=== PATIENT | female | born 1955 | race Caucasian/White ===

== ENCOUNTER → 2018-08-21 11:21 | Outpatient (REF) | payer OTHER, SELFPAY | LOC: LAB 11:21 | PROVIDERS: Visit Provider Nurse Practitioner Family | DX: R16.0 Hepatomegaly, not elsewhere classified (principal) | CPT/HCPCS: 82140 ==

== ENCOUNTER → 2018-08-21 11:24 | Outpatient (CLI) | payer OTHER, SELFPAY ==
--- NOTE | 2018-08-21 | DI.US.S_ITS ---
PROCEDURE: US ABDOMEN COMPLETE INDICATIONS: RIGHT UPPER QUADRANT PAIN ASCITES TECHNIQUE: Real-time scanning was performed of the abdominal and retroperitoneal organs, with image documentation. COMPARISON: None. FINDINGS: Liver: Liver is diffusely increased in echogenicity. No focal hepatic abnormalities identified. Normal hepatic size. Gallbladder: Tumefactive sludge ball involving the gallbladder and gallbladder wall is thickened measuring 5 mm. Small amount pericholecystic fluid. Negative sonographic Robert sign. Biliary ducts: Intrahepatic bile ducts are non-dilated. Extrahepatic bile duct caliber measures 5.0 mm. Normal is 6-7 mm or less in diameter, or 10 mm or less post-cholecystectomy. Pancreas: Visualized portions of the pancreas are sonographically normal. Spleen: Spleen is normal in size and homogeneous in echotexture. Kidneys: Kidneys are normal in size and echotexture. Right kidney measures 11.3 cm long; left kidney measures 10.7 cm long. No hydronephrosis or nephrolithiasis. No solid masses. Aorta: Visualized aorta is normal in caliber at less than 3 cm. Iliacs: Proximal common iliac arteries are normal in caliber at less than 2.5 cm. IVC: Intrahepatic inferior vena cava is patent. Miscellaneous: No free abdominal fluid. IMPRESSION: 14 mm tumefactive sludge ball, gallbladder wall thickening and trace pericholecystic fluid. Recommend clinical correlation to exclude developing cholecystitis. Increased hepatic echogenicity noted possibly related to hepatic steatosis but other sources of hepatocellular disease cannot be excluded. Recommend clinical correlation. Dictated by: Carson VALDIVIA Interpreted: Dania Vargas MD on 08/21/2018 at 15:00 Approved by: Dania Vargas M.D. on 08/21/2018 at 16:41
== END ==
PROVIDERS: PCP Nurse Practitioner Family; Visit Provider Nurse Practitioner Family
DX: R10.11 Right upper quadrant pain (principal); R18.8 Other ascites; R17 Unspecified jaundice; R16.0 Hepatomegaly, not elsewhere classified; K82.9 Disease of gallbladder, unspecified
CPT/HCPCS: 76700

== ENCOUNTER 2018-08-22 11:51 | Emergency (ER) | payer OTHER, SELFPAY ==
[2018-08-22 12:03] VITALS: BP 138/63; PULSE 104; RESP 20; TEMP 37; O2SAT 98; BMI 27.2
--- NOTE | 2018-08-22 12:03 | ED.ABDPAIN ---
HPI - Abdominal Pain General Chief Complaint: Abdominal Pain Stated Complaint: patient sent by Dr. Day Time Seen by Provider: 08/22/18 11:58 Source: patient Mode of arrival: ambulatory Limitations: no limitations History of Present Illness HPI narrative: Patient is a 62-year-old female sent in by her PCP concern for cholecystitis. She has had ongoing issues for last 1 month. She initially had some nausea vomiting diarrhea which has since resolved. She then had some right upper quadrant pain yesterday blood work was drawn showed elevated bilirubin of 7.0 and some sludge in the gallbladder. Results were called to her today she was sent to the ED for further evaluation. She no longer has nausea vomiting diarrhea. He has not had any recent traveling. She has minimal right upper quadrant pain no fever. He does have a history of breast cancer she was previously on medication which she stopped taking 1 month ago because the side effects to the liver. MD complaint: abdominal pain Related Data Home Medications Medication Instructions Recorded Confirmed multivitamin [Multiple Vitamins] 1 tab PO DAILY 08/22/18 08/22/18 Allergies Allergy/AdvReac Type Severity Reaction Status Date / Time No Known Drug Allergies Allergy Verified 08/22/18 14:15 Review of Systems Review of Systems All systems reviewed & are unremarkable except as noted in HPI and below Constitutional Denies chills, Denies fever(s), Denies lethargy and Denies weakness ENT Ears, Nose, Mouth, and Throat: Denies change in voice, Denies neck pain and Denies sore throat Cardiovascular Denies chest pain, Denies irregular heart rhythm, Denies lightheadedness, Denies palpitations, Denies dyspnea, Denies dyspnea on exertion and Denies orthopnea Respiratory Denies cough, Denies dyspnea, Denies dyspnea on exertion and Denies wheezing Gastrointestinal Gastrointestinal: Reports as per HPI Genitourinary Denies hematuria, Denies flank pain, Denies urinary incontinence and Denies urinary urgency Musculoskeletal Denies neck pain Integumentary/Breasts Denies pruritus, Denies erythema, Denies rash and Denies wounds Neurologic Denies weakness Endocrine Denies palpitations Allergic/Immunologic Denies wheezing PFSH Medical History Breast cancer (Acute) Melanoma (Acute) Social History Smoking Status: Never smoker alcohol intake: former Comment: 1-2 glasses of wine nightly but not for a few weeks Exam Initial Vital Signs Initial Vital Signs: Vital Signs Temperature 98.6 F 08/22/18 12:03 Pulse Rate 104 H 08/22/18 12:03 Respiratory Rate 20 08/22/18 12:03 Blood Pressure 138/63 08/22/18 12:03 Pulse Oximetry 98 08/22/18 12:03 Const General: cooperative and comfortable Orientation: alert, awake and oriented x3 HENMT Head: normal to inspection and normocephalic Eyes Conjunctivae: conjunctival abnormality bilaterally conjunctival icterus Pupils: PERRL EOM: EOM intact bilaterally Neck Neck: normal visual inspection and full ROM Chest Chest: normal inspection of the chest Resp Effort & Inspection: normal respiratory effort Auscultation: clear to auscultation bilaterally, no rales, no rhonchi and no wheezes Cardio Rate: regular rate Rhythm: regular rhythm Heart Sounds: S1 normal and S2 normal GI Inspection: normal to inspection Palpation: soft, No firm, No rigid, No tender (Negative Robert sign) and No ascites General: No CVA tenderness Skin General: No induration, jaundice and No petechiae Neuro General: alert, awake and oriented x3 Cranial Nerves: CN's II-XI intact bilaterally Course Orders Ordered: ED Orders 08/22/18 12:08 Complete Blood Count AUTO DIFF Stat 08/22/18 12:20 CT abdomen pelvis w con Stat 08/22/18 12:53 Comprehensive Metabolic Panel Stat Lipase Stat 08/22/18 14:05 MR abdomen wo con Stat Vital Signs - 8 hr 08/22/18 12:03 08/22/18 13:15 08/22/18 14:11 Temperature 98.6 F Pulse Rate 104 H 97 H 101 H Respiratory Rate 20 17 21 Blood Pressure 138/63 Blood Pressure [Left Arm] 120/61 116/59 L Pulse Oximetry 98 96 96 08/22/18 14:41 08/22/18 16:05 08/22/18 17:06 Temperature 98.4 F Pulse Rate 102 H 101 H 99 H Respiratory Rate 20 21 18 Blood Pressure 112/60 Blood Pressure [Left Arm] 122/46 L 122/46 L Pulse Oximetry 97 97 94 MDM - Abdominal Pain Medical Records Attestation: I reviewed the patient's medical records. Lab Data Attestation: I reviewed the patient's lab results. Result diagrams: 08/22/18 12:08 08/22/18 12:53 Lab Results 08/22/18 08/22/18 Range/Units 12:08 12:53 WBC 15.2 H (4.5-11.0) X10^3/uL RBC 3.18 L (4.0-5.2) X10^6/uL Hgb 11.6 L (12.0-16.0) g/dL Hct 34.1 L (36-46) % MCV 106.9 H (80-100) fL MCH 36.4 H (26-34) PG MCHC 34.0 (30-36) % RDW 14.6 (11.6-14.8) % Plt Count 399 (150-400) X10^3/uL Neut % (Auto) 78.5 H (50-75) % Lymph % (Auto) 12.3 L (25-40) % [place] % (Auto) 8.2 (3-14) % Eos % (Auto) 0.4 L (2-4) % Baso % (Auto) 0.6 (0-2) % Neut # (Auto) 39953 H (1070-9250) /uL Sodium 138 (137-145) mmol/L Potassium 3.6 (3.4-5.1) mmol/L Chloride 98 (98-107) mmol/L Carbon Dioxide 26 (22-32) mmol/L BUN 4 L (7-17) mg/dL Creatinine 0.40 L (0.52-1.04) mg/dL Estimated GFR > 60.0 (>60) mL/min BUN/Creatinine Ratio 10.0 (6-22) Glucose 94 (80-110) mg/dL Calcium 8.3 L (8.4-10.2) mg/dL Total Bilirubin 7.0 H (0.2-1.3) mg/dL AST 281 H (14-36) IU/L ALT 71 H (9-52) IU/L Alkaline Phosphatase 214 H (38-126) U/L Total Protein 6.8 (6.3-8.2) g/dL Albumin 3.3 L (3.5-5.0) g/dL Globulin 3.5 (1.7-4.1) g/dL Albumin/Globulin Ratio 0.9 L (1.0-2.8) Lipase 320 H (23-300) U/L Point of care testing: Urine Dip Bedside Urine Glucose Negative Bedside Urine Bilirubin - Negative Bedside Urine Ketone - Negative Bedside Urine Occult Blood - Negative Bedside Urine Protein - Negative Bedside Urine Urobilinogen - Negative Bedside Urine Nitrite - Negative Bedside Urine Leukocytes - Negative Esterase Imaging Data CT scan - abdomen: Radiologist's impression: PROCEDURE: CT ABDOMEN PELVIS W CON INDICATIONS: gallbaldder sludge on US hx melanoma and breast CA TECHNIQUE: After the administration of intravenous contrast, 5 mm thick sections acquired from the diaphragm to the symphysis. 5 mm coronal and sagittal reformats were acquired. For radiation dose reduction, the following was used: automated exposure control, adjustment of mA and/or kV according to patient size. COMPARISON: None. FINDINGS: Image quality: Excellent. ABDOMEN: Lung bases: Platelike atelectasis at bilateral lung bases are seen. No pleural effusion or pneumothorax. Heart size is mildly enlarged, no pericardial effusion. Solid organs: Liver is normal in size. Slightly lobulated liver contour and diffusely decreased liver parenchymal density is seen, which may represent hepatic steatosis. Early cirrhosis cannot be excluded. Small amount of ascites fluid is seen adjacent to right lobe of liver. No definite discrete hepatic lesion is seen. Gallbladder is partially distended and shows no calcified gallstone. Questionable gallbladder wall thickening is seen. A small amount of pericholecystic fluid is also noted. Biliary system is non dilated. Pancreas enhances normally. Spleen is normal in size and enhancement. No adrenal nodules. Kidneys demonstrate normal size and enhancement, without hydronephrosis. Peritoneum and bowel: There is a small hiatal hernia. Questionable gastric wall and duodenal wall thickening is seen. No other significant small bowel wall thickening. No gross colonic wall thickening. Extensive descending colon and sigmoid colon diverticulosis is seen, no significant evidence of acute diverticulitis. There is no peritoneal free air. Small to moderate amount of free fluid in the lower abdomen and pelvis is seen. Nodes and vessels: No retroperitoneal or mesenteric adenopathy by size criteria. Aorta and inferior vena cava are normal in size. Miscellaneous: No ventral hernias. PELVIS: Genitourinary: Bladder wall thickness is normal. Miscellaneous: No inguinal hernias or adenopathy. Bones: No suspicious bony lesions. No vertebral body compression fractures. IMPRESSION: 1. Mildly thickened gallbladder wall with pericholecystic fluid, no gross calcified gallstone is seen. Developing cholecystitis cannot be excluded. 2. Hepatic steatosis. Questionable lobulated liver contour, early cirrhosis cannot be excluded. No definite discrete hepatic lesion. No gross intrahepatic or ductal dilatation. 3. Small amount of ascites fluid adjacent to right lobe of liver. Small to moderate amount of fluid in lower abdomen and pelvis. No gross free air. 4. Questionable mild diffuse gastric wall thickening and duodenal wall thickening, which may represent gastroenteritis versus reactive inflammatory changes from adjacent inflammation in gallbladder fossa. No bowel obstruction. Sigmoid diverticulosis with no evidence of acute diverticulitis. Dictated by: Noah Fernández M.D. on 08/22/2018 at 12:50 MRCP: Radiologist's impression: PROCEDURE: MR ABDOMEN WO CON INDICATIONS: elevated bilirubin (dr. day request). ABDOMINAL PAIN TECHNIQUE: Coronal HASTE through the abdomen, axial 2-D FLASH in- and [id number], and breath-hold T2 FSE with fat saturation through the biliary system and pancreas. Oblique coronal and axial thin-slice HASTE, radial thick-slab HASTE centered on the extrahepatic bile ducts. Intravenous secretin: Not requested. COMPARISON: [facility], US, US ABDOMEN COMPLETE, 08/21/2018, 13:18. [facility], CT, CT ABDOMEN PELVIS W CON, 08/22/2018, 12:17. FINDINGS: Image quality: Excellent. Pancreas and biliary system: Intra- and extra-hepatic biliary ducts are non dilated. Pancreas is normal in morphology, without adjacent soft tissue edema. Pancreatic duct is normal in caliber, without developmental anomalies. Gallbladder contains no gallstones. There is mild gallbladder wall thickening and a small amount of pericholecystic fluid. Other solid organs: Liver is enlarged. Diffuse hepatic fatty infiltration. No focal hepatic mass. Spleen is normal in size. No adrenal nodules. Both kidneys are normal in size, without hydronephrosis. Nodes and vessels: A 1.3 cm periportal lymph node is noted. Aorta and inferior vena cava are normal in size. Bowel and peritoneum: Mild thickening of duodenum is noted. There is a small amount of free fluid around liver, spleen, and the lesser sac and paracolic cutters. Lung bases: No basal pleural effusions. Heart size is normal. Bones and soft tissues: No ventral hernias. Bone marrow is of normal overall signal. IMPRESSION: 1. There is mild gallbladder wall thickening and a small amount of pericholecystic fluid. No gallstones. This findings may be secondary to acalculus cholecystitis or related to liver disease such as hepatitis. 2. No evidence for biliary obstruction. 3. Hepatomegaly. 4. Mildly enlarged periportal lymph nodes, which is nonspecific and may be seen in hepatitis. 5. Mild thickening of duodenum is present. Differential diagnosis includes duodenitis, peptic ulcer disease or direct spread of inflammation/infection from liver or gallbladder disease. 6. A small amount of ascites. Dictated by: Elmer Gracia M.D. on 08/22/2018 at 15:36 Approved by: Elmer Gracia M.D. on 08/22/2018 at 15:51 [facility] Narrative Medical decision making narrative: Dr. Day has been updated patient's symptoms test results and CT. He has been down to the ER to evaluate and look at the CT himself. Recommend MRCP. MRCP does not show common bile duct blockage. Dr. Day has reviewed the MRCP results as well. At this time unlikely to be cholecystitis no need for surgery at this time. Possible hepatitis although I have spoken with Rosalinda Oakley who states that he hepatitis panel from yesterday has returned back and is normal. Patient does have slightly elevated GGTP, and 2-1 ratio of ALT to AST not like alcoholic hepatitis. At this time outpatient follow-up and further workup. I discussed all findings with the patient, Education has been performed regarding treatment plan, diagnosis, warning signs and symptoms and all concerns have been addressed. Verbally agree with and understood all of the above. Discharge Plan Departure Patient Disposition: Home Clinical Impression: Jaundice Discharge Date/Time: 08/22/18 17:06 Interventions: ED Discharge Assessment Last Done: 08/22/18 17:06 Instructions: Jaundice Activity Restrictions/Additional Instructions: *You have been diagnosed with jaundice *What to do: Jaundice is likely caused from and abnormal liver problem. At this time it is not clear what is causing all you're abnormal lab functions. I have spoken with Ashleigh Tellez who will get you a consultation and referral with a spot welder. At this time no indication for emergent or immediate surgery gallbladder is unlikely the problem *Continue to take medications as directed -avoid alcohol -do not take Tylenol *Follow up with your primary care provider in 2-3 days *Return to ER if you should have fever, increased abdominal swelling, increasing pain, worsening yellow color or any new, worsening or concerning symptoms Prescriptions: No Action multivitamin [Multiple Vitamins] Tablet 1 tab PO DAILY RF: 0 Referrals: Rosalinda Jackson ARNP [Primary Care Provider] -
--- NOTE | 2018-08-22 12:20 | DI.CT.S_ITS ---
PROCEDURE: CT ABDOMEN PELVIS W CON INDICATIONS: gallbaldder sludge on US hx melanoma and breast CA TECHNIQUE: After the administration of intravenous contrast, 5 mm thick sections acquired from the diaphragm to the symphysis. 5 mm coronal and sagittal reformats were acquired. For radiation dose reduction, the following was used: automated exposure control, adjustment of mA and/or kV according to patient size. COMPARISON: None. FINDINGS: Image quality: Excellent. ABDOMEN: Lung bases: Platelike atelectasis at bilateral lung bases are seen. No pleural effusion or pneumothorax. Heart size is mildly enlarged, no pericardial effusion. Solid organs: Liver is normal in size. Slightly lobulated liver contour and diffusely decreased liver parenchymal density is seen, which may represent hepatic steatosis. Early cirrhosis cannot be excluded. Small amount of ascites fluid is seen adjacent to right lobe of liver. No definite discrete hepatic lesion is seen. Gallbladder is partially distended and shows no calcified gallstone. Questionable gallbladder wall thickening is seen. A small amount of pericholecystic fluid is also noted. Biliary system is non dilated. Pancreas enhances normally. Spleen is normal in size and enhancement. No adrenal nodules. Kidneys demonstrate normal size and enhancement, without hydronephrosis. Peritoneum and bowel: There is a small hiatal hernia. Questionable gastric wall and duodenal wall thickening is seen. No other significant small bowel wall thickening. No gross colonic wall thickening. Extensive descending colon and sigmoid colon diverticulosis is seen, no significant evidence of acute diverticulitis. There is no peritoneal free air. Small to moderate amount of free fluid in the lower abdomen and pelvis is seen. Nodes and vessels: No retroperitoneal or mesenteric adenopathy by size criteria. Aorta and inferior vena cava are normal in size. Miscellaneous: No ventral hernias. PELVIS: Genitourinary: Bladder wall thickness is normal. Miscellaneous: No inguinal hernias or adenopathy. Bones: No suspicious bony lesions. No vertebral body compression fractures. IMPRESSION: 1. Mildly thickened gallbladder wall with pericholecystic fluid, no gross calcified gallstone is seen. Developing cholecystitis cannot be excluded. 2. Hepatic steatosis. Questionable lobulated liver contour, early cirrhosis cannot be excluded. No definite discrete hepatic lesion. No gross intrahepatic or ductal dilatation. 3. Small amount of ascites fluid adjacent to right lobe of liver. Small to moderate amount of fluid in lower abdomen and pelvis. No gross free air. 4. Questionable mild diffuse gastric wall thickening and duodenal wall thickening, which may represent gastroenteritis versus reactive inflammatory changes from adjacent inflammation in gallbladder fossa. No bowel obstruction. Sigmoid diverticulosis with no evidence of acute diverticulitis. Dictated by: Noah Fernández M.D. on 08/22/2018 at 12:50 Approved by: Noah Fernández M.D. on 08/22/2018 at 13:06
[2018-08-22 12:21] LABS: Add Manual Diff / Slide Review NO; Basophils Percent Auto 0.6 % (0-2); Eosinophils Percent Auto 0.4 % (2-4); Hematocrit 34.1 % (36-46); Hemoglobin 11.6 g/dL (12.0-16.0); Lymphocytes Percent Auto 12.3 % (25-40); Mean Corpuscular Hemoglobin 36.4 PG (26-34); Mean Corpuscular Volume 106.9 fL (80-100); Monocytes Percent Auto 8.2 % (3-14); Neutrophils Absolute Auto 12000 /uL (3000-5900); Neutrophils Percent Auto 78.5 % (50-75); Platelet Count 399 X10^3/uL (150-400); Red Blood Cell Count 3.18 X10^6/uL (4.0-5.2); Red Cell Distribution Width 14.6 % (11.6-14.8); White Blood Cell Count 15.2 X10^3/uL (4.5-11.0)
[2018-08-22 13:15] VITALS: BP 120/61; PULSE 97; RESP 17; O2SAT 96
[2018-08-22 13:21] LABS: Alanine Aminotransferase 71 IU/L (9-52); Albumin 3.3 g/dL (3.5-5.0); Albumin Globulin Ratio 0.9 (1.0-2.8); Alkaline Phosphatase 214 U/L (38-126); Aspartate Aminotransferase 281 IU/L (14-36); Blood Urea Nitrogen 4 mg/dL (7-17); Calcium 8.3 mg/dL (8.4-10.2); Carbon Dioxide 26 mmol/L (22-32); Chloride 98 mmol/L (98-107); Estimated Glomerular Filt Rate > 60.0 mL/min (>60); Globulin 3.5 g/dL (1.7-4.1); Glucose 94 mg/dL (80-110); HEMOLYSIS < 15 (0-50); Lipase 320 U/L (23-300); Potassium 3.6 mmol/L (3.4-5.1); Sodium 138 mmol/L (137-145); Total Protein 6.8 g/dL (6.3-8.2)
--- NOTE | 2018-08-22 14:05 | DI.MRI.S_ITS ---
PROCEDURE: MR ABDOMEN WO CON INDICATIONS: elevated bilirubin (dr. bella request). ABDOMINAL PAIN TECHNIQUE: Coronal HASTE through the abdomen, axial 2-D FLASH in- and [id number], and breath-hold T2 FSE with fat saturation through the biliary system and pancreas. Oblique coronal and axial thin-slice HASTE, radial thick-slab HASTE centered on the extrahepatic bile ducts. Intravenous secretin: Not requested. COMPARISON: [facility], US, US ABDOMEN COMPLETE, 08/21/2018, 13:18. [facility], CT, CT ABDOMEN PELVIS W CON, 08/22/2018, 12:17. FINDINGS: Image quality: Excellent. Pancreas and biliary system: Intra- and extra-hepatic biliary ducts are non dilated. Pancreas is normal in morphology, without adjacent soft tissue edema. Pancreatic duct is normal in caliber, without developmental anomalies. Gallbladder contains no gallstones. There is mild gallbladder wall thickening and a small amount of pericholecystic fluid. Other solid organs: Liver is enlarged. Diffuse hepatic fatty infiltration. No focal hepatic mass. Spleen is normal in size. No adrenal nodules. Both kidneys are normal in size, without hydronephrosis. Nodes and vessels: A 1.3 cm periportal lymph node is noted. Aorta and inferior vena cava are normal in size. Bowel and peritoneum: Mild thickening of duodenum is noted. There is a small amount of free fluid around liver, spleen, and the lesser sac and paracolic cutters. Lung bases: No basal pleural effusions. Heart size is normal. Bones and soft tissues: No ventral hernias. Bone marrow is of normal overall signal. IMPRESSION: 1. There is mild gallbladder wall thickening and a small amount of pericholecystic fluid. No gallstones. This findings may be secondary to acalculus cholecystitis or related to liver disease such as hepatitis. 2. No evidence for biliary obstruction. 3. Hepatomegaly. 4. Mildly enlarged periportal lymph nodes, which is nonspecific and may be seen in hepatitis. 5. Mild thickening of duodenum is present. Differential diagnosis includes duodenitis, peptic ulcer disease or direct spread of inflammation/infection from liver or gallbladder disease. 6. A small amount of ascites. Dictated by: Elmer Gracia M.D. on 08/22/2018 at 15:36 Approved by: Elmer Gracia M.D. on 08/22/2018 at 15:51
[2018-08-22 14:11] VITALS: BP 116/59; PULSE 101; RESP 21; O2SAT 96
[2018-08-22 14:41] VITALS: BP 122/46; PULSE 102; RESP 20; O2SAT 97
[2018-08-22 16:05] VITALS: BP 122/46; PULSE 101; RESP 21; O2SAT 97
[2018-08-22 17:06] VITALS: BP 112/60; PULSE 99; RESP 18; TEMP 36.9; O2SAT 94
== END 2018-08-22 17:06 | disposition home or self-care (01) ==
PROVIDERS: Emergency Provider Emergency Medicine; PCP Nurse Practitioner Family
DX: R17 Unspecified jaundice (principal); R10.9 Unspecified abdominal pain
CPT/HCPCS: 36415; 36591; 74177; 74181; 80053; 81003; 83690; 85025; 99283; 99285; Q9967

== ENCOUNTER → 2018-08-27 13:14 | Outpatient (REF) | payer OTHER, SELFPAY ==
[2018-08-27 14:10] LABS: Monotest Negative (Negative)
== END ==
LOC: LAB 13:14
PROVIDERS: Visit Provider Nurse Practitioner Family
DX: R53.83 Other fatigue (principal); R17 Unspecified jaundice; R16.0 Hepatomegaly, not elsewhere classified; R11.2 Nausea with vomiting, unspecified
CPT/HCPCS: 86318

== ENCOUNTER → 2021-08-23 09:45 | Outpatient (CLI) | payer MEDICARE, SELFPAY ==
--- NOTE | 2021-08-23 09:51 | DI.CT.S_ITS ---
PROCEDURE: CT ABDOMEN PELVIS W CON INDICATIONS: Generalized abdominal pain TECHNIQUE: After the administration of oral and IV contrast, axial sections were acquired from the lung bases to the pubic symphysis. Coronal and sagittal reformats were performed. For radiation dose reduction, the following was used: automated exposure control, adjustment of mA and/or kV according to patient size. COMPARISON: [facility], CT, CT ABDOMEN PELVIS W CON, 08/22/2018, 12:17. FINDINGS: Image quality: Excellent. Lung bases: Very small bilateral pleural effusions. Bibasilar atelectatic changes. Distal esophageal varices are present. Heart: Mild cardiomegaly. Trace pericardial effusion. ABDOMEN: Liver: The liver has considerably decreased in size and the margin is diffusely nodular. No definite dominant mass. Gallbladder: Decompressed gallbladder with hyperemic wall, nonspecific. Biliary ducts: Nondilated. Pancreas: Normal. Spleen: Within normal limits for size measuring 12 x 11 cm. Adrenal Glands: No nodules. Kidneys and Ureters: No calcifications or hydronephrosis. Stomach and Bowel: Stomach and small bowel are normal. A normal appendix is seen. There is diverticulosis of the sigmoid colon. Peritoneum: There is a large amount of ascites. There is diffuse mesenteric congestion. Ventral Wall: Anasarca. No hernia. Abdominal Nodes: No retroperitoneal or mesenteric adenopathy by size criteria. Vessels: Aorta and inferior vena cava are normal in size. PELVIS: Pelvic Organs: Surgically absent uterus. Normal ovaries. Bladder: Unremarkable. Pelvic Nodes: No enlarged lymph nodes. Miscellaneous: No inguinal hernias are seen. Bones: Unremarkable. IMPRESSION: 1. Development of cirrhotic changes to the liver. Correlate with history. These changes can be seen in pseudocirrhosis of treated breast cancer, but are more likely related to other intrinsic liver disease. 2. Large amount of intraperitoneal ascites may be secondary to portal hypertension, although the spleen size and portal vein diameter is are normal. Malignant ascites should be considered. 3. Small bilateral pleural effusions and anasarca suggest 3rd spacing. 4. Esophageal varices. Dictated by: Arleen Bedoya M.D. on 08/23/2021 at 12:09 Approved by: Arleen Bedoya M.D. on 08/23/2021 at 12:18
== END ==
PROVIDERS: PCP Internal Medicine; Referring Provider Internal Medicine; Visit Provider Internal Medicine
DX: R10.84 Generalized abdominal pain (principal); K76.89 Other specified diseases of liver; R18.8 Other ascites; J90 Pleural effusion, not elsewhere classified; I85.00 Esophageal varices without bleeding
CPT/HCPCS: 74177

== ENCOUNTER 2021-09-06 20:14 | Emergency (ER) | payer MEDICARE, SELFPAY ==
[2021-09-06 20:22] VITALS: BP 114/55; PULSE 77; RESP 20; TEMP 37; O2SAT 97
[2021-09-06 21:02] LABS: INR 2.1 (0.9-1.3); Prothrombin Time 23.9 SECONDS (10.1-12.7)
[2021-09-06 21:05] LABS: PTT Partial Thromboplastin Tim 35 SECONDS (26.4-36.2)
[2021-09-06 21:07] LABS: Basophils Absolute Auto 0 /uL (0-100); Basophils Percent Auto 0.5 % (0-2); Eosinophils Absolute Auto 0 /uL (0-450); Eosinophils Percent Auto 0.1 % (2-4); Hematocrit 29.7 % (36-46); Hemoglobin 9.9 g/dL (12.0-16.0); Lymphocytes Absolute Auto 1400 /uL (1100-4500); Lymphocytes Percent Auto 27.8 % (25-40); Mean Corpuscular HGB Conc 33.3 % (30-36); Mean Corpuscular Hemoglobin 29.9 PG (26-34); Mean Corpuscular Volume 89.8 fL (80-100); Monocytes Absolute Auto 500 /uL (0-900); Monocytes Percent Auto 10.3 % (3-14); Neutrophils Absolute Auto 3100 /uL (1500-7000); Neutrophils Percent Auto 61.3 % (50-75); Platelet Count 125 X10^3/uL (150-400); Red Cell Distribution Width 19.3 % (11.6-14.8)
[2021-09-06 21:10] LABS: Alanine Aminotransferase 16 IU/L (<35); Albumin 2.6 g/dL (3.5-5.0); Albumin Globulin Ratio 0.7 (1.0-2.8); Alkaline Phosphatase 92 U/L (38-126); Ammonia (NH3) 30 umol/L (9-30); Aspartate Aminotransferase 53 IU/L (14-36); BUN Creatinine Ratio 21.7 (6-22); Bilirubin Total 4.7 mg/dL (0.2-1.3); Blood Urea Nitrogen 10 mg/dL (7-17); Calcium 8.2 mg/dL (8.4-10.2); Carbon Dioxide 33 mmol/L (22-32); Chloride 96 mmol/L (98-107); Estimated Glomerular Filt Rate > 60.0 mL/min (>60); Ethanol (ETOH) < 10 mg/dL; Globulin 3.7 g/dL (1.7-4.1); Glucose 113 mg/dL (80-110); HEMOLYSIS < 15 (0-50); Lactate (Lactic Acid) 1.9 mmol/L (0.7-2.1); Lipase 163 U/L (23-300); Potassium 3.4 mmol/L (3.4-5.1); Sodium 131 mmol/L (137-145); Total Protein 6.3 g/dL (6.3-8.2)
[2021-09-06 21:25] LABS: Add Manual Diff / Slide Review SLIDE REVIEW
[2021-09-06 21:26] LABS: Anisocytosis 1+; Poikilocytosis 1+; Target Cells 1+
[2021-09-06 21:28] LABS: Acanthocytes 1+; Burr Cells 1+; Schistocytes 1+
[2021-09-06 21:39] LABS: COVID19 - ADMIT (NP swab/PCR) Negative (Negative)
--- NOTE | 2021-09-06 22:06 | ED_ITS ---
HPI - General Adult General Chief complaint: Abdominal Pain Stated complaint: LIVER FAILURE ABN LABS VOMITTING MUSCLE CRAMPS Time Seen by Provider: 09/06/21 20:40 Source: patient Mode of arrival: Ambulatory History of Present Illness HPI narrative: Patient is a 65-year-old female with history of cirrhosis. Approximately 1 week ago she had a paracentesis with removal of 5 L. She states that the swelling in her lower extremity and her breathing issues she was having at the time have vastly improved. She is here today because she was vomiting. She contacted her primary provider who informed her to come to the emergency department for evaluation. She denies chest pain. Does have some shortness of breath but this is improved after her paracentesis. She states she still feels like she still has fluid on her abdomen but it is much better. Related Data Home Medications Medication Instructions Recorded Confirmed multivitamin (Multiple Vitamins) 1 tab PO DAILY 08/22/18 08/22/18 Previous Rx's Medication Instructions Recorded ondansetron 4 mg disintegrating 4 mg PO Q6H PRN #10 tab 09/06/21 tablet Allergies Allergy/AdvReac Type Severity Reaction Status Date / Time No Known Drug Allergies Allergy Verified 10/04/18 15:15 Review of Systems Cardiovascular Cardiovascular: Denies chest pain and Denies dyspnea Respiratory Respiratory: Denies dyspnea Gastrointestinal Gastrointestinal: Reports nausea and Denies vomiting Genitourinary Genitourinary: Reports system reviewed and no additional complaints, except as documented Integumentary/Breasts Skin/Breast: Reports system reviewed and no additional complaints, except as documented Neurologic Neurologic: Reports system reviewed and no additional complaints, except as documented Hematologic/Lymphatic On Anticoagulants: No Patient History Medical History Breast cancer Melanoma Social History Smoking Status: Never smoker alcohol intake: former Smoking Status: Never smoker alcohol intake frequency: a few times a month Substance Use Type: does not use Exam Initial Vital Signs Initial Vital Signs: Vital Signs Temperature 98.6 F 09/06/21 20:22 Pulse Rate 77 09/06/21 20:22 Respiratory Rate 20 09/06/21 20:22 Blood Pressure 114/55 L 09/06/21 20:22 Pulse Oximetry 97 09/06/21 20:22 Const General: cooperative HENMT Head: normal to inspection Resp Effort & Inspection: normal respiratory effort Cardio Rate: regular rate GI Palpation: soft and No tender Neuro General: patient alert, patient awake and moves all extremities Extrem General: normal to inspection and capillary refill normal Psych Appearance: grossly normal and well kempt Course Orders Ordered: ED Orders 09/06/21 20:43 Ammonia (NH3) Stat Basic Metabolic Panel Stat Complete Blood Count AUTO DIFF Stat Ethanol (ETOH) Stat Hepatic (Liver) Panel Stat Lactate (Lactic Acid) Stat Lipase Stat Partial Thromboplastin Time Stat Prothrombin Time INR Stat 09/06/21 20:53 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 - 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 Result diagrams: 09/06/21 20:43 09/06/21 20:43 Labs: Lab Results 09/06/21 09/06/21 09/06/21 Range/Units 20:43 20:43 20:43 WBC 5.0 (4.5-11.0) X10^3/uL RBC 3.30 L (4.0-5.2) X10^6/uL Hgb 9.9 L (12.0-16.0) g/dL Hct 29.7 L (36-46) % MCV 89.8 (80-100) fL MCH 29.9 (26-34) PG MCHC 33.3 (30-36) % RDW 19.3 H (11.6-14.8) % Plt Count 125 L (150-400) X10^3/uL Neut % (Auto) 61.3 (50-75) % Lymph % (Auto) 27.8 (25-40) % Hayes % (Auto) 10.3 (3-14) % Eos % (Auto) 0.1 L (2-4) % Baso % (Auto) 0.5 (0-2) % Neut # (Auto) 3100 (3048-6843) /uL Lymph # (Auto) 1400 (0695-2884) /uL Hayes # (Auto) 500 (0-900) /uL Eos # (Auto) 0 (0-450) /uL Baso # (Auto) 0 (0-100) /uL RBC Morphology See below Poikilocytosis 1+ H Anisocytosis 1+ H Target Cells 1+ H Dupree Cells 1+ H Acanthocytes (Spur) 1+ H Schistocytes 1+ H PT 23.9 H (10.1-12.7) SECONDS INR 2.1 H (0.9-1.3) APTT 35 (26.4-36.2) SECONDS Sodium 131 L (137-145) mmol/L Potassium 3.4 (3.4-5.1) mmol/L Chloride 96 L (98-107) mmol/L Carbon Dioxide 33 H (22-32) mmol/L BUN 10 (7-17) mg/dL Creatinine 0.46 L (0.52-1.04) mg/dL Estimated GFR > 60.0 (>60) mL/min BUN/Creatinine Ratio 21.7 (6-22) Glucose 113 H (80-110) mg/dL Lactate (0.7-2.1) mmol/L Calcium 8.2 L (8.4-10.2) mg/dL Total Bilirubin 4.7 H (0.2-1.3) mg/dL Conjugated Bilirubin 0.0 (0.0-0.3) md/dL Unconjugated Bilirubin 3.0 H (0.0-1.1) mg/dL AST 53 H (14-36) IU/L ALT 16 (<35) IU/L Alkaline Phosphatase 92 (38-126) U/L Ammonia (9-30) umol/L Total Protein 6.3 (6.3-8.2) g/dL Albumin 2.6 L (3.5-5.0) g/dL Globulin 3.7 (1.7-4.1) g/dL Albumin/Globulin Ratio 0.7 L (1.0-2.8) Lipase (23-300) U/L Ethyl Alcohol < 10 ( - 10) mg/dL SARS-CoV-2 (PCR) (Negative) 09/06/21 09/06/21 09/06/21 Range/Units 20:43 20:43 20:43 WBC (4.5-11.0) X10^3/uL RBC (4.0-5.2) X10^6/uL Hgb (12.0-16.0) g/dL Hct (36-46) % MCV (80-100) fL MCH (26-34) PG MCHC (30-36) % RDW (11.6-14.8) % Plt Count (150-400) X10^3/uL Neut % (Auto) (50-75) % Lymph % (Auto) (25-40) % Hayes % (Auto) (3-14) % Eos % (Auto) (2-4) % Baso % (Auto) (0-2) % Neut # (Auto) (9991-9170) /uL Lymph # (Auto) (1802-2709) /uL Hayes # (Auto) (0-900) /uL Eos # (Auto) (0-450) /uL Baso # (Auto) (0-100) /uL RBC Morphology Poikilocytosis Anisocytosis Target Cells Tawanda Cells Acanthocytes (Spur) Schistocytes PT (10.1-12.7) SECONDS INR (0.9-1.3) APTT (26.4-36.2) SECONDS Sodium (137-145) mmol/L Potassium (3.4-5.1) mmol/L Chloride (98-107) mmol/L Carbon Dioxide (22-32) mmol/L BUN (7-17) mg/dL Creatinine (0.52-1.04) mg/dL Estimated GFR (>60) mL/min BUN/Creatinine Ratio (6-22) Glucose (80-110) mg/dL Lactate 1.9 (0.7-2.1) mmol/L Calcium (8.4-10.2) mg/dL Total Bilirubin (0.2-1.3) mg/dL Conjugated Bilirubin (0.0-0.3) md/dL Unconjugated Bilirubin (0.0-1.1) mg/dL AST (14-36) IU/L ALT (<35) IU/L Alkaline Phosphatase (38-126) U/L Ammonia 30 (9-30) umol/L Total Protein (6.3-8.2) g/dL Albumin (3.5-5.0) g/dL Globulin (1.7-4.1) g/dL Albumin/Globulin Ratio (1.0-2.8) Lipase 163 (23-300) U/L Ethyl Alcohol ( - 10) mg/dL SARS-CoV-2 (PCR) (Negative) 09/06/21 Range/Units 20:53 WBC (4.5-11.0) X10^3/uL RBC (4.0-5.2) X10^6/uL Hgb (12.0-16.0) g/dL Hct (36-46) % MCV (80-100) fL MCH (26-34) PG MCHC (30-36) % RDW (11.6-14.8) % Plt Count (150-400) X10^3/uL Neut % (Auto) (50-75) % Lymph % (Auto) (25-40) % Hayes % (Auto) (3-14) % Eos % (Auto) (2-4) % Baso % (Auto) (0-2) % Neut # (Auto) (0161-5971) /uL Lymph # (Auto) (8514-3960) /uL Hayes # (Auto) (0-900) /uL Eos # (Auto) (0-450) /uL Baso # (Auto) (0-100) /uL RBC Morphology Poikilocytosis Anisocytosis Target Cells Tawanda Cells Acanthocytes (Spur) Schistocytes PT (10.1-12.7) SECONDS INR (0.9-1.3) APTT (26.4-36.2) SECONDS Sodium (137-145) mmol/L Potassium (3.4-5.1) mmol/L Chloride (98-107) mmol/L Carbon Dioxide (22-32) mmol/L BUN (7-17) mg/dL Creatinine (0.52-1.04) mg/dL Estimated GFR (>60) mL/min BUN/Creatinine Ratio (6-22) Glucose (80-110) mg/dL Lactate (0.7-2.1) mmol/L Calcium (8.4-10.2) mg/dL Total Bilirubin (0.2-1.3) mg/dL Conjugated Bilirubin (0.0-0.3) md/dL Unconjugated Bilirubin (0.0-1.1) mg/dL AST (14-36) IU/L ALT (<35) IU/L Alkaline Phosphatase (38-126) U/L Ammonia (9-30) umol/L Total Protein (6.3-8.2) g/dL Albumin (3.5-5.0) g/dL Globulin (1.7-4.1) g/dL Albumin/Globulin Ratio (1.0-2.8) Lipase (23-300) U/L Ethyl Alcohol ( - 10) mg/dL SARS-CoV-2 (PCR) Negative (Negative) MDM Narrative Medical decision making narrative: Patient's labs are abnormal however they have improved from previous labs. She felt better after Zofran and was able to tolerate oral intake. Will hold on further workup for now. She was given return precautions and follow-up instructions. She expressed understanding agreement. Discharge Plan Departure Patient Disposition: Home Clinical Impression: Nausea Instructions: DI for Nausea -- Adult Activity Restrictions/Additional Instructions: Continue to take all of your medications as directed. Use the Zofran as needed for nausea. Contact your primary doctor for a follow-up. Return to the emergency department for any new or worsening symptoms Prescriptions: New ondansetron 4 mg tablet,disintegrating 4 mg PO Q6H PRN (Reason: nausea and vomiting) Qty: 10 0RF No Action multivitamin [Multiple Vitamins] Tablet 1 tab PO DAILY 0RF Referrals: Krystyna Holloway MD [Primary Care Provider] -
[2021-09-06] MEDS: ONDANSETRON 4 MG/2 ML INJ IV (22:10)
[2021-09-06 22:57] VITALS: BP 114/55; PULSE 74; RESP 12; O2SAT 96
[2021-09-06] MEDS: ONDANSETRON 4 MG ODT PREPACK 1 BOTTLE MISC (23:13)
== END 2021-09-06 23:27 | disposition home or self-care (01) ==
PROVIDERS: Emergency Provider Emergency Medicine; PCP Internal Medicine
DX: R11.2 Nausea with vomiting, unspecified (principal); Z20.822 Contact with and (suspected) exposure to COVID-19
CPT/HCPCS: 36415; 80048; 80076; 80320; 82140; 83605; 83690; 85025; 85610; 85730; 87635; 96374; 99284; C9803; J2405

== ENCOUNTER → 2021-11-03 10:41 | Outpatient (CLI) | payer MEDICARE, SELFPAY ==
--- NOTE | 2021-11-03 | DI.RAD.S_ITS ---
PROCEDURE: XR DEXA AXIAL SKELETON INDICATIONS: liver cirrhosis,liver transplant candidate COMPARISON: None. FINDINGS: This blank DEXA report has been sent in error by the PACS system. The correct and complete report will be forthcoming in 1-2 days. Thank you for your patience and understanding. Dictated by: Susan Heard MD, PhD on 11/04/2021 at 8:19 Approved by: Susan Heard MD, PhD on 11/04/2021 at 8:19
== END ==
PROVIDERS: PCP Internal Medicine; Referring Provider Internal Medicine; Visit Provider Internal Medicine
DX: M85.851 Other specified disorders of bone density and structure, right thigh (principal); Z78.0 Asymptomatic menopausal state; K74.60 Unspecified cirrhosis of liver; Z85.3 Personal history of malignant neoplasm of breast; Z76.82 Awaiting organ transplant status; Z87.891 Personal history of nicotine dependence
CPT/HCPCS: 77080

== ENCOUNTER → 2021-12-17 12:56 | Outpatient (CLI) | payer MEDICARE, SELFPAY ==
[2021-12-17 14:51] LABS: COVID-19 CEPHEID PCR (VTM/NP) Negative (Negative)
== END ==
PROVIDERS: PCP Internal Medicine; Visit Provider Family Medicine Sleep Medicine
DX: Z20.822 Contact with and (suspected) exposure to COVID-19 (principal)
CPT/HCPCS: C9803; U0003; U0005

== ENCOUNTER → 2022-06-03 09:59 | Outpatient (CLI) | payer MEDICARE, SELFPAY ==
--- NOTE | 2022-06-03 | DI.RAD.S_ITS ---
PROCEDURE: XR CHEST 2V INDICATIONS: Cough, unspecified TECHNIQUE: 2 views of the chest were acquired. COMPARISON: [facility], CR, XR CHEST 2VW, 09/07/2016, 14:06. FINDINGS: Surgical changes and devices: Surgical clips are markers in left breast. Lungs and pleura: Lungs are clear. No pleural effusions or pneumothorax. Mediastinum: Mediastinal contours are normal. Heart size is normal. Bones and chest wall: No suspicious bony abnormalities. Soft tissues appear unremarkable. IMPRESSION: No acute cardiopulmonary disease. Dictated by: Elmer Gracia M.D. on 06/03/2022 at 17:15 Approved by: Elmer Gracia M.D. on 06/03/2022 at 17:17
== END ==
PROVIDERS: PCP Internal Medicine; Referring Provider Internal Medicine; Visit Provider Internal Medicine
DX: J30.9 Allergic rhinitis, unspecified (principal); R05.9 Cough, unspecified
CPT/HCPCS: 71046